=== PATIENT | female | born 1960 | race Caucasian/White ===

== ENCOUNTER → 2022-04-26 10:33 | Outpatient (CLI) | payer MEDICARE, BC, SELFPAY ==
--- NOTE | ~2022-04-26 | MM_ITS ---
EXAMINATION: MM screening [facility] BI w debbie HISTORY: Screening TECHNIQUE: Craniocaudal and mediolateral oblique 3-D tomosynthesis images were obtained and synthetic 2-D images were generated. CAD analysis was submitted and interpreted. COMPARISON: Comparison to multiple prior studies sequentially, with oldest reviewed study dated 04/13 months. BREAST PARENCHYMAL COMPOSITION: There are scattered areas of fibroglandular density. FINDINGS: There is no evidence of suspicious mass, calcification, or architectural distortion to sugg est malignancy in either breast. There has been no suspicious interval change. IMPRESSION: 1. No mammographic evidence of malignancy. 2. Recommend routine screening mammography in one year. BI-RADS Category 1: Negative Reviewed, dictated and finalized at location A.
== END ==
DX: Z12.31 Encounter for screening mammogram for malignant neoplasm of breast (principal)
CPT/HCPCS: 77063; 77067

== ENCOUNTER → 2023-06-24 11:21 | Outpatient (CLI) | payer MEDICARE, BC, SELFPAY ==
--- NOTE | ~2023-06-24 | MM_ITS ---
EXAMINATION: MM screening [facility] BI w debbie HISTORY: Screening mammogram TECHNIQUE: Craniocaudal and mediolateral oblique 3-D tomosynthesis images were obtained and synthetic 2-D images were generated. CAD analysis was submitted and interpreted. COMPARISON: 04/26/2022, 05/26/2019, 05/21/2018 bilateral screening mammogram examinations BREAST PARENCHYMAL COMPOSITION: There are scattered areas of fibroglandular density. FINDINGS: There is no evidence of suspicious mass, calcification, or architectural distortion to sugg est malignancy in either breast. There has been no suspicious interval change. IMPRESSION: 1. No mammographic evidence of malignancy. 2. Recommend routine screening mammography in one year. BI-RADS Category 1: Negative Reviewed, dictated and finalized at location A.
== END ==
DX: Z12.31 Encounter for screening mammogram for malignant neoplasm of breast (principal)
CPT/HCPCS: 77063; 77067

== ENCOUNTER 2023-09-20 11:27 | Emergency (ER) | payer MEDICARE, BC, SELFPAY ==
--- NOTE | ~2023-09-20 | XR_ITS ---
XR chest 2V DATE: 09/20/2023 12:11 INDICATION: Chest pain, shortness of breath TECHNIQUE: PA and lateral views COMPARISON: None FINDINGS: Normal heart size. No hilar or mediastinal enlargement. Bilateral hyperinflation. No pulmon kaylin infiltrate or consolidation, pleural effusion or pulmonary vascular congestion or pneumothorax is detected. IMPRESSION: Bilateral hyperinflation; no active cardiopulmonary disease Reviewed, dictated and finalized at location A. IPLE CUT OFF SAW OPERATOR
--- NOTE | 2023-09-20 11:28 | ECG_ITS ---
Measurements Intervals [place] Rate: 79 P: 65 OR: 155 QRS: 77 QRSD: 84 T: 66 QT: 357 QTc: 410 Interpretive Statements SINUS RHYTHM BASELINE ARTIFACT- I, II, III, AVR, AVL, AVF, V1 NORMAL ECG NO PREVIOUS ECG AVAILABLE FOR COMPARISON Electronically Signed On 09-20-2023 15:17:57 DNA ANALYST by Yasmany Palafox D.O.
[2023-09-20 11:39] VITALS: BP 125/81; PULSE 92; RESP 16; TEMP 36.2; O2SAT 96
[2023-09-20] MEDS: ASPIRIN 81 MG CHEWABLE TABLET 324 MG PO (11:54)
--- NOTE | 2023-09-20 12:04 | ED.CHESTPAIN ---
HPI - Chest Pain General Chief Complaint: Chest Pain Stated Complaint: CP and SOB since Time Seen by Provider: 09/20/23 11:36 History of Present Illness HPI narrative: Patient is a 63 year old female with history of DM here with multiple symptoms including near syncope, nausea, vomiting and chest discomfort. Patient notes that on 09/17 she was coloring her hair when she began feeling light headed and some bilateral arm discomfort. She notes she got into the shower to wash her hair and almost passed out 3 times. She then had to run to bathroom and began throwing up and having a large bowel movement. She crawled into bed and fell asleep shivering. She spoke with a friend who is a nurse a day later who suggested maybe she had a heart attack the day prior and that she should get evaluated. She attempted to go to an urgent care yesterday however her car battery was . Today she got her car battery fixed and went to an urgent care for an EKG who sent her into the ER for additional evaluation. She notes that since Friday she has had a vague chest discomfort and increased belching. No abdominal pain. No additional nausea or vomiting. No shortness of breath. She denies any sick contacts. Related Data Allergies Allergy/AdvReac Type Severity Reaction Status Date / Time morphine Allergy Rash Verified 09/20/23 11:53 Sulfa (Sulfonamide Allergy Unknown Verified 09/20/23 11:53 Antibiotics) Review of Systems Review of Systems: All systems reviewed & are unremarkable except as noted in HPI and below Exam Narrative: GENERAL: Well-appearing, well-nourished, and in no acute distress. HEAD: Normocephalic, atraumatic. EYES: PERRLA and EOMI. ENT: Nares clear. Mucous membranes moist. NECK: Supple. CHEST: Clear to auscultation. No respiratory distress. HEART: Regular rate and rhythm. Normal peripheral pulses. ABDOMEN: Soft, nontender, nondistended. EXTREMITIES: Normal range of motion. No edema. SKIN: Warm, dry, no rash. NEURO: No focal deficits. Alert and oriented x3. PSYCH: Normal mood and affect. Course Course Emergency Course: Chart review performed. Patient here with CP and shortness of breath. Triage vitals normal. No prior visits here. Triage chest pain protocol reviewed. No leukocytosis, initial troponin negative. BNP normal. UA negative for UTI. Viral swab negative. Patient seen evaluated, nontoxic appearing. Here with some vague chest discomfort for 4 days. Overall seems to have had an event 4 days ago with near syncope and nausea, this has since resolved. Repeat troponin negative. Repeat EKG unchanged. HEART score of 3. Shared decision making with patient, she has no interest in being hospitalized. Will refer her outpatient to cardiology and remote operations producer PCP if she does not want to follow with or cannot follow with her PCP. The results of pertinent diagnostic studies and exam findings were discussed. The patient?s provisional diagnosis and plan of care were discussed with the patient and present family. The patient and/or present family expressed understanding of the diagnosis and plan. The nurse was instructed to provide written instructions and appropriate follow-up information. The patient understands their need and responsibility to obtain additional follow-up as instructed. The risks of medications administered and prescribed were discussed with the patient and family present. Vital Signs Vital signs: Vital Signs Temperature 97.1 F L 09/20/23 11:39 Pulse Rate 92 09/20/23 11:39 Respiratory Rate 16 09/20/23 11:39 Blood Pressure 125/81 09/20/23 11:39 Pulse Oximetry 96 09/20/23 11:39 Temperature 97.1 F L 09/20/23 11:39 Pulse Rate 79 09/20/23 13:45 Respiratory Rate 16 09/20/23 13:45 Blood Pressure 113/67 09/20/23 13:45 Pulse Oximetry 93 09/20/23 13:45 MDM - Chest Pain Lab Data 09/20/23 11:55 09/20/23 11:55 Labs: Lab Results 09/20/23 09/20/23 01
[2023-09-20 12:08] LABS: Basophils Absolute Auto 0.1 K/mm3 (0.0-0.1); Basophils Percent Auto 0.6 % (0.2-1.2); Eosinophils Absolute Auto 0.1 K/mm3 (0-0.3); Eosinophils Percent Auto 0.5 % (0-4.4); Hematocrit 50.6 % (37.0-47.0); Immature Granulocyte Absolute 0.03 K/mm3 (0.00-0.031); Immature Granulocyte Percent A 0.3 % (0-0.5); Lymphocytes Absolute Auto 2.96 K/mm3 (0.9-3.2); Lymphocytes Percent Auto 27.7 % (18.3-44.2); Mean Corpuscular HGB Conc 31.6 g/dl (32-36); Mean Corpuscular Hemoglobin 30.5 pg (26-34); Mean Corpuscular Volume 96.4 fl (80-100); Mean Platelet Volume 9.6 fl (7.4-10.4); Monocytes Absolute Auto 0.7 K/mm3 (0.1-0.6); Monocytes Percent Auto 6.3 % (2.6-8.5); Neutrophils Absolute Auto 6.9 K/mm3 (1.3-6.7); Neutrophils Percent Auto 64.6 % (45.5-73.1); Platelet Count Result 280 k/mm3 (150-375); Red Blood Count 5.25 M/mm3 (4.2-5.4); Red Cell Distribution Width 13.4 % (11.5-14.5); White Blood Count 10.7 K/mm3 (4.5-10.0)
[2023-09-20 12:17] LABS: Prothrombin Time 13.6 Seconds (11.1-14.7)
[2023-09-20 12:18] LABS: Alanine Aminotransferase 29 U/L (6-35); Albumin Level 4.8 g/dL (3.5-5.1); Alkaline Phosphatase 111 U/L (38-126); Anion Gap 8 mmol/L (8-16); Aspartate Amino Transferase 34 U/L (14-36); Blood Urea Nitrogen 15 mg/dL (7-17); Calcium 9.4 mg/dL (8.4-10.2); Carbon Dioxide 30 mmol/L (22-30); Chloride 103 mmol/L (98-107); Estimated CRCL calculation 69 ml/min; Estimated Glomerular Filt Rate > 60; Glucose 156 mg/dL (65-110); Lipase 179 U/L (23-300); Partial Thromboplastin Time 29.2 SECONDS (22.3-36.8); Potassium 4.2 mmol/L (3.4-5.0); Sodium 141 mmol/L (137-145)
[2023-09-20 12:30] LABS: Troponin I < 0.012 ng/mL (0.000-0.034)
[2023-09-20 12:53] VITALS: BP 99/71; PULSE 83; RESP 16; O2SAT 95
[2023-09-20 13:03] LABS: Influenza A QL RT-PCR Negative (Negative); Influenza B QL RT-PCR Negative (Negative); RSV RNA, RT-PCR Negative (Negative); SARS-CoV-2 RNA PCR Negative (Negative)
[2023-09-20 13:07] LABS: NT Pro B Type Natriuretic Pept < 20 pg/mL (19.9-100)
[2023-09-20 13:45] VITALS: BP 113/67; PULSE 79; RESP 16; O2SAT 93
[2023-09-20 13:48] LABS: Appearance Urine Clear (Clear); Bacteria Urine None Seen /hpf; Bilirubin Urine Negative (Negative); Blood Urine Negative (Negative); Color Urine Dark Yellow (Yellow); Glucose Urine UA Negative (Negative); Ketones Urine Trace mg/dL (Negative); Leukocyte Esterase Ur Trace LEU/UL (Negative); Nitrate Urine Negative (Negative); Protein Urine Trace mg/dL (Negative); RBC Urine 0-2 /hpf (0-2); Specific Grav Ur 1.028 (1.001-1.035); Squamous Epithelial Cell Urine Occasional /hpf (Few); WBC Urine 0-5 /hpf
[2023-09-20 13:49] LABS: Add Urine Microscopic? YES
--- NOTE | 2023-09-20 14:50 | ECG_ITS ---
Measurements Intervals [place] Rate: 75 P: 2 [place]: 143 QRS: 49 QRSD: 82 T: 70 QT: 379 QTc: 425 Interpretive Statements SINUS RHYTHM BASELINE ARTIFACT- I, II, III, AVR, AVL, AVF NORMAL ECG COMPARED TO ECG 09/20/2023 11:33:42 NO SIGNIFICANT CHANGES Electronically Signed On 09-21-2023 7:08:02 SENIOR CORE JAVA DEVELOPER by Yasmany Palafox D.O.
[2023-09-20 14:51] LABS: Troponin I < 0.012 ng/mL (0.000-0.034)
== END 2023-09-20 15:08 | disposition home or self-care (01) ==
PROVIDERS: Emergency Medicine; Emergency Provider Student in an Organized Health Care Education/Training Program
DX: R55 Syncope and collapse (principal); R07.89 Other chest pain; R11.2 Nausea with vomiting, unspecified; R06.02 Shortness of breath; Z20.822 Contact with and (suspected) exposure to COVID-19
CPT/HCPCS: 36415; 71046; 80053; 81001; 83690; 83880; 84484; 85025; 85610; 85730; 87637; 93005; 99284; A9270

== ENCOUNTER → 2023-10-10 08:48 | Outpatient (CLI) | payer MEDICARE, BC, SELFPAY ==
--- NOTE | ~2023-10-10 | DEXA_ITS ---
Bone Density Report Name: SONY JOHNSON Age: 63 Sex: Female Ethnicity: White Date of : 1960 Indication: postmenopausal; screening for osteoporosis; Referring Provider: SANTIAGO HANSON Study: Bone densitometry was performed. Exam Date: October 10, 2023 Accession number: [id number] Bone Density: Region BMD T-score Z-score Classification AP Spine (L1-L4) 1.022 -0.2 1.6 Normal Femoral Neck (Left) 0.727 -1.1 0.4 Osteopenia Total Hip (Left) 0.878 -0.5 0.7 Normal Femoral Neck (Right) 0.777 -0.7 0.9 Normal Total Hip (Right) 0.892 -0.4 0.8 Normal Total Hip Mean 0.885 -0.5 0.8 Normal World Health Organization criteria for BMD impression classify patients as: Normal (T-score at or above -1.0), Osteopenia (T-score between -1.0 and -2.5), or Osteoporosis (T-score at or below -2.5). 10-year Fracture Risk(1): Major Osteoporotic Fracture 7.6% Hip Fracture 1.1% Reported Risk Factors: [place] (), Neck BMD=0.727, BMI=21.9, smoking (1) FRAX(R) Version 3.08. Fracture probability calculated for an untreated patient. Fracture probability may be lower if the patient has received treatment. Previous Exams: Region Exam Age BMD T-score BMD Change BMD Change Date g/cm2 vs Baseline vs Previous AP Spine(L1-L4) 10/10/2023 63 1.022 -0.2 -0.049* -0.050* 05/06/2017 56 1.072 0.2 0.001 0.020 03/11/2014 53 1.053 0.1 -0.019 -0.019 11/14/2008 48 1.072 0.2 Total Hip(Left) 10/10/2023 63 0.878 -0.5 -0.120* -0.065* 05/06/2017 56 0.943 0.0 -0.055* -0.017 03/11/2014 53 0.961 0.2 -0.038* -0.038* 11/14/2008 48 0.998 0.5 Total Hip(Right) 10/10/2023 63 0.892 -0.4 -0.115* -0.080* 05/06/2017 56 0.972 0.2 -0.036* -0.005 03/11/2014 53 0.977 0.3 -0.031* -0.031* 11/14/2008 48 1.007 0.5 *Denotes significance at 95% confidence level, LSC for AP Spine = 0.022 g/cm2, LSC for Total Hip = 0.027 g/cm2 Clinical Information Provided by Patient: Smokes Patient maximum height was 69.5 Menopause Age: 48 No regular weight bearing exercise Drinks caffeinated beverages Onset of menses at age 12 Number of children 0 Impression: The patient has low bone mass, based on the Left Femoral Neck T-score. The patient has an estimated ten-year risk of hip fracture of 1.
== END ==
DX: Z78.0 Asymptomatic menopausal state (principal); M85.852 Other specified disorders of bone density and structure, left thigh
CPT/HCPCS: 77080

== ENCOUNTER 2025-04-02 07:53 | Outpatient (CLI) | payer MEDICARE, BC, SELFPAY ==
--- NOTE | ~2025-04-02 | MM_ITS ---
EXAMINATION: MM screening [facility] BI w debbie HISTORY: Screening TECHNIQUE: Craniocaudal and mediolateral oblique 3-D tomosynthesis images were obtained and synthetic 2-D images were generated. CAD analysis was submitted and interpreted. COMPARISON: Comparison to multiple prior studies sequentially, with oldest reviewed study dated 04/29. BREAST PARENCHYMAL COMPOSITION: There are scattered areas of fibroglandular density. FINDINGS: There is no evidence of suspicious mass, calcification, or architectural distortion to sug gest malignancy in either breast. Scattered benign-appearing calcifications are present. IMPRESSION: 1. No mammographic evidence of malignancy. 2. Recommend routine screening mammography in one year. BI-RADS Category 2: Benign finding(s). Reviewed, dictated and finalized at location B.
== END 2025-04-02 07:54 | disposition home or self-care (01) ==
DX: Z12.31 Encounter for screening mammogram for malignant neoplasm of breast (principal)
CPT/HCPCS: 77063; 77067